=== PATIENT | male | born 1940 | race Caucasian/White ===

== ENCOUNTER 2016-07-27 12:03 | Emergency (ER) | payer MEDICARE, OTHER ==
[2016-07-27] MEDS ORDERED: IPRATROPIUM/ALBUTEROL 3 ML NEB INH STA (13:03)
[2016-07-27] MEDS ORDERED: IPRATROPIUM/ALBUTEROL 3 ML NEB INH ONE (13:10)
[2016-07-27] MEDS ORDERED: ALBUTEROL NEB 2.5 MG/3 ML INH STA (14:25)
[2016-07-27] MEDS ORDERED: predniSONE 20 MG TABLET PO STA (14:25)
[2016-07-27] MEDS ORDERED: predniSONE 20 MG TABLET ONE (14:27)
[2016-07-27] MEDS ORDERED: ALBUTEROL NEB 2.5 MG/3 ML INH ONE (14:38)
== END 2016-07-27 15:30 | disposition home or self-care (01) ==
DX: J44.1 Chronic obstructive pulmonary disease with (acute) exacerbation (principal); R00.1 Bradycardia, unspecified; D64.9 Anemia, unspecified; I10 Essential (primary) hypertension; I25.2 Old myocardial infarction; Z95.5 Presence of coronary angioplasty implant and graft; Z79.82 Long term (current) use of aspirin
CPT/HCPCS: 36415; 71020; 80053; 83690; 83880; 84484; 85025; 85610; 85730; 87275; 87276; 93005; 93010; 94640; 99284; J7512; J7613; J7620

== ENCOUNTER 2016-08-20 20:03 | Outpatient (CLI) | payer MEDICARE, OTHER | END 2016-08-20 20:04 | disposition home or self-care (01) | DX: I42.9 Cardiomyopathy, unspecified (principal) ==

== ENCOUNTER 2016-10-01 21:06 | Outpatient (CLI) | payer MEDICARE, OTHER | END 2016-10-01 21:07 | disposition home or self-care (01) | DX: I42.9 Cardiomyopathy, unspecified (principal); I10 Essential (primary) hypertension; I25.10 Atherosclerotic heart disease of native coronary artery without angina pectoris; E87.1 Hypo-osmolality and hyponatremia; E87.6 Hypokalemia ==

== ENCOUNTER 2016-10-16 12:00 | Outpatient (CLI) | payer MEDICARE, OTHER | END 2016-10-16 12:01 | disposition home or self-care (01) | DX: E87.1 Hypo-osmolality and hyponatremia (principal); I42.9 Cardiomyopathy, unspecified; I25.10 Atherosclerotic heart disease of native coronary artery without angina pectoris; I10 Essential (primary) hypertension; E87.6 Hypokalemia ==

== ENCOUNTER 2016-12-23 08:00 | Outpatient (CLI) | payer MEDICARE, OTHER ==
[2016-12-23 19:15] LABS: ALBUMIN/GLOBULIN RATIO 1.6 (1.0-2.2); BILIRUBIN,TOTAL 0.7 mg/dL (0.2-1.0); CALCIUM 9.2 mg/dL (8.5-10.3); CREATININE 1.1 mg/dL (0.6-1.2); POTASSIUM 4.4 mmol/L (3.5-5.0); TOTAL PROTEIN 6.4 g/dL (6.7-8.2)
== END 2016-12-23 08:01 | disposition home or self-care (01) ==
LOC: LAB.WCP 08:00
PROVIDERS: ATTEND Family Medicine
DX: J44.9 Chronic obstructive pulmonary disease, unspecified (principal); I42.9 Cardiomyopathy, unspecified; I25.10 Atherosclerotic heart disease of native coronary artery without angina pectoris
CPT/HCPCS: 36415; 80053

== ENCOUNTER 2017-06-06 13:23 | Outpatient (CLI) | payer MEDICARE, OTHER ==
[2017-06-06 19:09] LABS: ALBUMIN/GLOBULIN RATIO 1.2 (1.0-2.2); BILIRUBIN,TOTAL 1.2 mg/dL (0.2-1.0); CALCIUM 9.4 mg/dL (8.5-10.3); CREATININE 1.3 mg/dL (0.6-1.2); TOTAL PROTEIN 7.5 g/dL (6.7-8.2)
== END 2017-06-06 13:24 | disposition home or self-care (01) ==
LOC: LAB.WCP 13:23
PROVIDERS: ATTEND Family Medicine
DX: E87.5 Hyperkalemia (principal); I10 Essential (primary) hypertension
CPT/HCPCS: 36415; 80053

== ENCOUNTER 2018-06-08 13:20 | Outpatient (CLI) | payer MEDICARE, OTHER ==
[2018-06-08 19:20] LABS: BASOPHILS # (AUTO) 0.1 10^3/uL (0.0-0.1); BASOPHILS % (AUTO) 1.1 %; EOSINOPHILS # (AUTO) 0.3 10^3/uL (0.0-0.7); EOSINOPHILS % (AUTO) 4.1 %; HGB - HEMOGLOBIN 13.5 g/dL (14.0-18.0); LYMPHOCYTES # (AUTO) 1.2 10^3/uL (1.5-3.5); LYMPHOCYTES % (AUTO) 16.4 %; MEAN CORPUSCULAR HEMOGLOBIN 30.4 pg (27.0-31.0); MEAN CORPUSCULAR HGB CONC 32.5 g/dL (32.0-36.0); MEAN CORPUSCULAR VOLUME 93.6 fL (80.0-94.0); MEAN PLATELET VOLUME 12.6 fL (7.4-11.4); MONOCYTES # (AUTO) 0.8 10^3/uL (0.0-1.0); MONOCYTES % (AUTO) 10.6 %; NEUTROPHILS % (AUTO) 67.8 %; PLT - PLATELET COUNT 121 10^3/uL (130-450); RED BLOOD COUNT 4.45 10^6/uL (4.70-6.10); RED CELL DISTRIBUTION WIDTH 14.4 % (12.0-15.0); WHITE BLOOD COUNT 7.3 x10^3/uL (4.8-10.8)
[2018-06-08 19:36] LABS: ALBUMIN 3.9 g/dL (3.2-5.5); ALBUMIN/GLOBULIN RATIO 1.4 (1.0-2.2); ALKALINE PHOSPHATASE 66 IU/L (42-121); ALT ALANINE AMINOTRANSFERASE 16 IU/L (10-60); AST ASPARTATE AMINOTRANSFERASE 21 IU/L (10-42); BUN - BLOOD UREA NITROGEN 26 mg/dL (6-20); CARBON DIOXIDE - CO2 30 mmol/L (21-32); CHLORIDE 100 mmol/L (101-111); CHOL/HDL RATIO 2.8 (<5.0); CHOLESTEROL 111 mg/dL; CREATININE 1.2 mg/dL (0.6-1.2); GFR - MDRD 59 (>89); GLUCOSE 111 mg/dL (70-100); HDL CHOLESTEROL 40 mg/dL; LDL CHOLESTEROL,CALCULATED 50 mg/dL; LDL/HDL RATIO 1.3 (<3.6); SODIUM 134 mmol/L (135-145); TOTAL PROTEIN 6.6 g/dL (6.7-8.2); VLDL CHOLESTEROL 21 mg/dL
[2018-06-08 19:37] LABS: PLATELET ESTIMATE, MANUAL DECREASED (<130,000) (NORMAL); PLATELET MORPHOLOGY NORMAL APPEARANCE (NORMAL); RBC MORPHOLOGY (MULTIPLE) NORMAL APPEARANCE (NORMAL)
== END 2018-06-08 23:59 | disposition home or self-care (01) ==
LOC: LAB.WCP 13:20
PROVIDERS: ATTEND Family Medicine
DX: I42.9 Cardiomyopathy, unspecified (principal); I10 Essential (primary) hypertension; I25.10 Atherosclerotic heart disease of native coronary artery without angina pectoris; E87.1 Hypo-osmolality and hyponatremia; E87.6 Hypokalemia
CPT/HCPCS: 36415; 80053; 80061; 83721; 84443; 85025

== ENCOUNTER 2018-08-27 13:26 | Outpatient (CLI) | payer MEDICARE, OTHER ==
[2018-08-27 19:06] LABS: ALBUMIN 4.4 g/dL (3.2-5.5); ALBUMIN/GLOBULIN RATIO 1.5 (1.0-2.2); BILIRUBIN,TOTAL 0.9 mg/dL (0.2-1.0); CALCIUM 9.5 mg/dL (8.5-10.3); CREATININE 1.5 mg/dL (0.6-1.2); TOTAL PROTEIN 7.4 g/dL (6.7-8.2)
== END 2018-08-27 13:27 | disposition home or self-care (01) ==
LOC: LAB.WCP 13:26
PROVIDERS: ATTEND Family Medicine
DX: J44.9 Chronic obstructive pulmonary disease, unspecified (principal); I10 Essential (primary) hypertension; I42.9 Cardiomyopathy, unspecified
CPT/HCPCS: 36415; 80053

== ENCOUNTER 2018-09-18 09:24 | Outpatient (CLI) | payer MEDICARE, OTHER ==
--- NOTE | 2018-09-18 11:32 | XRAY Report ---
Reason: COPD, ACUTE EXACERBATION Procedure Date: 09/18/2018 Accession Number: [id number] / [id number] Procedure: WCP - Chest 2 View X-Ray CPT Code: 05715 FULL RESULT: EXAM: CHEST RADIOGRAPHY EXAM DATE: 09/18/2018 09:38 AM. CLINICAL HISTORY: COPD, acute exacerbation. COMPARISON: CHEST 2 VIEW PA/LAT 02/16/2018 8:31 AM. TECHNIQUE: 2 views. FINDINGS: Lungs/Pleura: No focal opacities evident. No pleural effusion. No pneumothorax. High normal volumes with flattening of diaphragms, similar to before. Mediastinum: Heart and mediastinal contours are unremarkable. Other: None. IMPRESSION: Stable examination with appearance compatible with obstructive lung disease. RADIA
== END 2018-09-18 09:25 | disposition home or self-care (01) ==
LOC: DI.WCP 09:24
PROVIDERS: ATTEND Family Medicine
DX: J44.1 Chronic obstructive pulmonary disease with (acute) exacerbation (principal)
CPT/HCPCS: 71046

== ENCOUNTER 2018-09-24 11:48 | Emergency (ER) | payer MEDICARE, OTHER ==
[2018-09-24] MEDS ORDERED: IOPAMIDOL-300 100 ML VIAL IVP ONE ×2 (11:49→20:27)
[2018-09-24 12:42] LABS: BASOPHILS # (AUTO) 0.1 10^3/uL (0.0-0.1); BASOPHILS % (AUTO) 0.4 %; EOSINOPHILS # (AUTO) 0.2 10^3/uL (0.0-0.7); EOSINOPHILS % (AUTO) 0.8 %; HGB - HEMOGLOBIN 13.4 g/dL (14.0-18.0); LYMPHOCYTES # (AUTO) 1.7 10^3/uL (1.5-3.5); LYMPHOCYTES % (AUTO) 8.8 %; MEAN CORPUSCULAR HEMOGLOBIN 30.9 pg (27.0-31.0); MEAN CORPUSCULAR HGB CONC 33.7 g/dL (32.0-36.0); MEAN CORPUSCULAR VOLUME 91.6 fL (80.0-94.0); MEAN PLATELET VOLUME 10.7 fL (7.4-11.4); MONOCYTES # (AUTO) 1.5 10^3/uL (0.0-1.0); MONOCYTES % (AUTO) 7.4 %; NEUTROPHILS # (AUTO) 16.2 10^3/uL (1.5-6.6); NEUTROPHILS % (AUTO) 82.6 %; PLT - PLATELET COUNT 229 10^3/uL (130-450); RED BLOOD COUNT 4.34 10^6/uL (4.70-6.10); RED CELL DISTRIBUTION WIDTH 14.3 % (12.0-15.0); WHITE BLOOD COUNT 19.6 x10^3/uL (4.8-10.8)
[2018-09-24 12:57] LABS: INR 1.4 (0.8-1.2); PT - PROTHROMBIN TIME 15.3 secs (9.9-12.6)
[2018-09-24] MEDS ORDERED: IPRATROPIUM/ALBUTEROL 3 ML NEB INH STA ×2 (12:57→19:47)
--- NOTE | 2018-09-24 12:59 | XRAY Report ---
Reason: dyspnea Procedure Date: 09/24/2018 Accession Number: [id number] / [id number] Procedure: XR - Chest 1 View X-Ray CPT Code: 14157 FULL RESULT: EXAM: CHEST RADIOGRAPHY EXAM DATE: 09/24/2018 12:50 PM. CLINICAL HISTORY: Dyspnea. COMPARISON: None. TECHNIQUE: 1 view. FINDINGS: Lungs/Pleura: No focal opacities evident. No pleural effusion. No pneumothorax. Mediastinum: Within exam limitations, the cardiomediastinal contour is normal. Other: None. IMPRESSION: No focal consolidation. RADIA
[2018-09-24 13:02] LABS: TROPONIN I < 0.04 ng/mL (<0.49)
[2018-09-24 13:04] LABS: CREATINE KINASE MB 6.2 ng/mL (0.6-6.3)
--- NOTE | 2018-09-24 13:04 | ED Physician Documentation ---
PD HPI DYSPNEA - Stated complaint Stated Complaint: SENT BY SALVATORE FOY - Chief complaint Chief Complaint: Resp - History obtained from History obtained from: Patient, Family - History of Present Illness Timing - onset: Other (This is a 78-year-old gentleman with history of viral my myocarditis/cardiomyopathy in 2013. He says that his most recent ejection fraction was 45%, however the note from his doctor's office visit was 35%. Regardless he got sick about a week ago with cough cold and runny nose. He was seen in the office and it was felt to be a COPD exacerbation. He was put on steroids, but went back for a recheck today and his physician thought he might be in congestive heart failure and sent him to the emergency department for further evaluation. He says he is worse when he is supine, but denies pedal edema. He has no calf pain. No fevers. He finished the steroids about 2 days ago. There is no chest pain.) Review of Systems Ten Systems: 10 systems reviewed and negative Constitutional: reports: Fatigue. denies: Fever, Chills Nose: reports: Rhinorrhea / runny nose Throat: denies: Sore throat Cardiac: denies: Chest pain / pressure, Palpitations, Pedal edema, Calf pain Respiratory: reports: Dyspnea, Cough, Wheezing. denies: Hemoptysis PD PAST MEDICAL HISTORY - Past Medical History Cardiovascular: Hypertension, High cholesterol, [place] Respiratory: COPD GI: GERD, Hiatal hernia - Past Surgical History Past Surgical History: Yes Cardiovascular: Coronary stent HEENT: Cataracts - Present Medications Home Medications: Ambulatory Orders Medication Instructions Recorded Confirmed Albuterol Sulf [Ventolin Hfa 1 - 2 puffs INH Q4HR PRN 07/27/16 07/27/16 Inhaler] Aspirin [Aspirin EC] 81 mg PO DAILY 07/27/16 07/27/16 Atorvastatin Calcium 80 mg PO DAILY 07/27/16 07/27/16 Carvedilol 12.5 mg PO DAILY 07/27/16 07/27/16 Carvedilol 25 mg PO QPM 07/27/16 07/27/16 Fluticasone Propionate [Flovent 12 gm IH BID 07/27/16 07/27/16 Hfa] Losartan [Cozaar] 50 mg PO DAILY 07/27/16 07/27/16 Pantoprazole [Protonix] 40 mg PO DAILY 07/27/16 07/27/16 Furosemide [Lasix] 20 mg PO DAILY 09/24/18 09/24/18 - Allergies Allergies/Adverse Reactions: Allergies Allergy/AdvReac Type Severity Reaction Status Date / Time chlortrimeton AdvReac Mild Hives Uncoded 09/24/18 12:05 - Social History Does the pt smoke?: No Smoking Status: Never smoker Does the pt drink ETOH?: No Does the pt have substance abuse?: No - POLST Patient has POLST: No PD ED PE NORMAL - Vitals Vital signs reviewed: Yes (Hypoxic and tachypneic) - General General: Alert and oriented X 3, Other (Pursed lip breathing but speaking in full sentences) - HEENT HEENT: PERRL, EOMI - Neck Neck: Supple, no meningeal sign, No bony TTP, No JVD - Cardiac Cardiac: RRR, No murmur - Respiratory Respiratory: Other (Very diminished throughout, no rales) - Abdomen Abdomen: Soft, Non tender - Back Back: No CVA TTP, No spinal TTP - Derm Derm: Normal color, Warm and dry - Extremities Extremities: No edema, No calf tenderness / cord - Neuro Neuro: Alert and oriented X 3, Normal speech Results - Vitals Vitals: Vital Signs - 24 hr 09/24/18 09/24/18 09/24/18 12:03 12:26 13:11 Temperature 36.5 C 36.4 C L Heart Rate 72 69 71 Respiratory 26 H 22 20 Rate Blood Pressure 154/92 H 169/102 H 127/98 H O2 Saturation 87 L 94 92 09/24/18 09/24/18 09/24/18 13:32 13:36 14:39 Temperature Heart Rate 94 100 76 Respiratory 27 H 23 34 H Rate Blood Pressure 127/98 H 173/79 H O2 Saturation 90 L 09/24/18 09/24/18 09/24/18 15:43 16:13 16:27 Temperature 36.3 C L Heart Rate 74 78 73 Respiratory 18 22 20 Rate Blood Pressure 188/94 H O2 Saturation 92 09/24/18 09/24/18 09/24/18 17:00 17:15 17:30 Temperature Heart Rate 78 72 73 Respiratory 20 22 22 Rate Blood Pressure 137/88 H 156/80 H 144/87 H O2 Saturation 93 90 L 90 L 09/24/18 09/24/18 09/24/18 17:45 18:00 18:15 Temperature Heart Rate 73 72 72 Respiratory 20 22 20 Rate Blood Pressure 165/83 H 155/85 H 161/80 H O2 Saturation 90 L 90 L 90 L 09/24/18 18:30 Temperature Heart Rate 78 Respiratory 22 Rate Blood Pressure 167/85 H O2 Saturation 91 L Oxygen O2 Source Oxymask Oxygen Flow Rate 3 - EKG (time done) 1225 Rate: Rate (enter#) (69) Rhythm: NSR [place]: Normal Intervals: Normal IN QRS: Normal Ischemia: Normal ST segments Computer interpretation: Agree with computer - Labs Labs: Laboratory Tests 09/24/18 09/24/18 09/24/18 12:15 12:15 12:15 WBC 19.6 H RBC 4.34 L Hgb 13.4 L Hct 39.8 L MCV 91.6 MCH 30.9 MCHC 33.7 RDW 14.3 Plt Count 229 MPV 10.7 Neut # (Auto) 16.2 H Lymph # (Auto) 1.7 Harney # (Auto) 1.5 H Eos # (Auto) 0.2 Baso # (Auto) 0.1 Absolute Nucleated RBC 0.00 Nucleated RBC % 0.0 PT 15.3 H INR 1.4 H VBG pH VBG pCO2 VBG pO2 VBG HCO3 VBG Total CO2 VBG O2 Saturation VBG Base Excess Sodium 138 Potassium 3.7 Chloride 101 Carbon Dioxide 21 Anion Gap 16.0 H BUN 36 H Creatinine 1.3 H Estimated GFR (MDRD) 53 L Glucose 96 Calcium 8.0 L Total Bilirubin 0.8 AST 29 ALT 23 Alkaline Phosphatase 67 Total Creatine Kinase 118 CK-MB (CK-2) Troponin I B-Natriuretic Peptide Total Protein 6.9 Albumin 3.9 Globulin 3.0 Albumin/Globulin Ratio 1.3 Lipase 35 Influenza A (Rapid) Influenza B (Rapid) 09/24/18 09/24/18 09/24/18 12:15 13:06 16:22 WBC RBC Hgb Hct MCV MCH MCHC RDW Plt Count MPV Neut # (Auto) Lymph # (Auto) Harney # (Auto) Eos # (Auto) Baso # (Auto) Absolute Nucleated RBC Nucleated RBC % PT INR VBG pH 7.459 H VBG pCO2 34.8 L VBG pO2 54.0 H VBG HCO3 24.1 VBG Total CO2 25.2 VBG O2 Saturation 88.8 H VBG Base Excess 0.8 Sodium Potassium Chloride Carbon Dioxide Anion Gap BUN Creatinine Estimated GFR (MDRD) Glucose Calcium Total Bilirubin AST ALT Alkaline Phosphatase Total Creatine Kinase CK-MB (CK-2) 6.2 Troponin I < 0.04 B-Natriuretic Peptide 270 H Total Protein Albumin Globulin Albumin/Globulin Ratio Lipase Influenza A (Rapid) Influenza B (Rapid) 09/24/18 18:10 WBC RBC Hgb Hct MCV MCH MCHC RDW Plt Count MPV Neut # (Auto) Lymph # (Auto) Harney # (Auto) Eos # (Auto) Baso # (Auto) Absolute Nucleated RBC Nucleated RBC % PT INR VBG pH VBG pCO2 VBG pO2 VBG HCO3 VBG Total CO2 VBG O2 Saturation VBG Base Excess Sodium Potassium Chloride Carbon Dioxide Anion Gap BUN Creatinine Estimated GFR (MDRD) Glucose Calcium Total Bilirubin AST ALT Alkaline Phosphatase Total Creatine Kinase CK-MB (CK-2) Troponin I B-Natriuretic Peptide Total Protein Albumin Globulin Albumin/Globulin Ratio Lipase Influenza A (Rapid) Negative Influenza B (Rapid) Negative - Rads (name of study) 1v chest Radiology: EMP read contemporaneously (Read by the radiologist as normal, the radiologist comments that there are no pleural effusions, I do see a small left pleural effusion.) CTA chest Radiology: EMP read contemporaneously (Mild opacities in the right middle and right lower lobe, small apex nodules. No PE.) PD MEDICAL DECISION MAKING - ED course ED course: This is a 78-year-old gentleman with COPD and a history of heart disease. He was sent here for concern for CHF, however my examination and history is more consistent with COPD exacerbation. He is hypoxic and tachypneic. He was administered IV Solu-Medrol 125 mg, Rocephin and Zithromax IV, and multiple breathing treatments. After a DuoNeb his sats dropped further, there is really no significant evidence of CHF on chest x-ray or BNP which is only middling. He does need to be admitted. Unfortunately this hospital is full as is every hospital in the area I am told including [place], [place], [place], [place], and everything in [place]. We discussed with the patient potentially being transferred over to [place] or [place] which she refused so he will board in the emergency department until a bed is available. I spoke with the hospitalist, Dr. Ge at 2:12 PM, due to his volume he will have to delay the admission until discharge are done. It looks like there is no bed available here for the whole day and at least until tomorrow. A bed did open up in [place] and the patient was agreeable. He did have an increasing oxygen requirement up to 7 L by Oxymizer mask. Accept[facility] by Dr. Nicol [facility] to [facility] at 5:55 PM. She requests a flu swab and this will be done. Cobras were completed. He is stable for transport. - Critical Care Time(min): 45 Time Includes: Direct patient care, Review records, Reassess patient, Document care, Coordinate care, Medical consult, Family consult for tx dec Data interpretation: Labs, Pulse ox Procedures included in critical care time: Peripheral IV Procedures excluded from critical care time: EKG Departure - Departure Disposition: 02 Transfer Acute Care Hosp Clinical Impression: Severe chronic obstructive pulmonary disease Pneumonia Qualifiers: Pneumonia type: due to unspecified organism Laterality: right Lung location: unspecified part of lung Qualified Code(s): J18.9 - Pneumonia, unspecified organism Condition: Serious
[2018-09-24] MEDS ORDERED: AZITHROMYCIN INJ 500 MG in SODIUM CHLORIDE 0.9% 250 ML IV STA (13:05)
[2018-09-24] MEDS ORDERED: methylPREDNISolone SUCCINATE 125 MG/2 ML VIAL IVP STA (13:05)
[2018-09-24] MEDS ORDERED: cefTRIAXone 1 GM in SODIUM CHLORIDE 0.9% MINIBAG 100 ML IV STA (13:05)
[2018-09-24 13:34] LABS: ALBUMIN 3.9 g/dL (3.2-5.5); ALBUMIN/GLOBULIN RATIO 1.3 (1.0-2.2); BILIRUBIN,TOTAL 0.8 mg/dL (0.2-1.0); CREATININE 1.3 mg/dL (0.6-1.2); TOTAL PROTEIN 6.9 g/dL (6.7-8.2)
[2018-09-24] MEDS ORDERED: ALBUTEROL NEB 2.5 MG/3 ML INH STA ×2 (15:33→16:08)
[2018-09-24] MEDS ORDERED: IOPAMIDOL-300 100 ML VIAL ONE (16:18)
[2018-09-24 16:25] LABS: VBG PCO2 34.8 mmHg (41-51); VBG PH 7.459 (7.31-7.41)
[2018-09-24 16:26] LABS: VBG BASE EXCESS 0.8 mmol/L (-2 - +2); VBG TOTAL CO2 25.2 mmol/L (24-29)
--- NOTE | 2018-09-24 17:36 | CT Report ---
Reason: Dyspnea, PE study Procedure Date: 09/24/2018 Accession Number: [id number] / [id number] Procedure: CT - ANGIO CHEST W/WO CPT Code: FULL RESULT: EXAM: CT ANGIOGRAM CHEST EXAM DATE: 09/24/2018 04:38 PM. CLINICAL HISTORY: Dyspnea, PE study. COMPARISON: None. TECHNIQUE: Routine helical imaging was performed through the chest in the pulmonary arterial phase. IV Contrast: ISOVUE 300 80mL. Reconstructions: Coronal 3-D MIP reconstructions.Sagittal and coronal. In accordance with CT protocol optimization, one or more of the following dose reduction techniques were utilized for this exam: automated exposure control, adjustment of mA and/or KV based on patient size, or use of iterative reconstructive technique. FINDINGS: Mediastinum: No evidence for pulmonary emboli. Heart size within normal limits. Coronary artery calcification. No thoracic aortic aneurysm. No mediastinal or hilar lymphadenopathy. Upper abdomen: No acute findings. Mild colonic diverticulosis at the splenic flexure. Lungs: A few small right apex only nodules, the largest measures 4 mm. Mild diffuse nodular hazy opacities are seen in the right middle lobe with minimal base consolidations. Mild diffuse hazy nodular opacities with a few multifocal small opacities seen in the right lower lobe. Bilateral lower lobe bronchial wall thickening with areas of bronchial opacification. Mild lingular and left based consolidations, suspect atelectasis. No pleural effusion or pneumothorax. 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 No acute bone findings are seen. IMPRESSION: 1. Mild hazy and nodular opacities are seen in the right middle lobe and right lower lobe concerning for pneumonia or aspiration. Bilateral lower lobe bronchial wall thickening with areas of bronchial opacification. 2. A few small right apex only nodules, the largest measures 4 mm. If there is low risk for malignancy, then no follow-up is warranted. If there is high risk for malignancy, recommend a 1 year follow-up chest CT. 3. Mild colonic diverticulosis at the splenic flexure. 4. No evidence for pulmonary emboli. 5. See above. RADIA
[2018-09-24 20:14] VITALS: BP 185/79
== END 2018-09-24 20:53 | disposition short-term general hospital (02) ==
LOC: ED 11:48
DX: J44.9 Chronic obstructive pulmonary disease, unspecified (principal); J18.9 Pneumonia, unspecified organism; I25.2 Old myocardial infarction; I10 Essential (primary) hypertension; E78.00 Pure hypercholesterolemia, unspecified; Z95.5 Presence of coronary angioplasty implant and graft
CPT/HCPCS: 36415; 71045; 71275; 80053; 82550; 82553; 82803; 83690; 83880; 84484; 85025; 85610; 87275; 87276; 93005; 94640; 96365; 96367; 96375; 99284; 99291; Q9967; 99285

== ENCOUNTER 2018-09-24 22:23 | Outpatient (CLI) | payer MEDICARE, OTHER | END 2018-09-24 22:24 | disposition short-term general hospital (02) | LOC: EMS 22:23 | PROVIDERS: ATTEND Surgery | DX: J44.1 Chronic obstructive pulmonary disease with (acute) exacerbation (principal) | CPT/HCPCS: A0425; A0426 ==

== ENCOUNTER 2018-10-09 08:00 | Outpatient (CLI) | payer MEDICARE, OTHER ==
[2018-10-09 19:11] LABS: CALCIUM 8.6 mg/dL (8.5-10.3); CREATININE 1.4 mg/dL (0.6-1.2)
== END 2018-10-09 23:59 | disposition home or self-care (01) ==
LOC: LAB.WCP 08:00
PROVIDERS: ATTEND Family Medicine
DX: I42.9 Cardiomyopathy, unspecified (principal)
CPT/HCPCS: 36415; 80048

== ENCOUNTER 2019-01-11 16:58 | Outpatient (CLI) | payer MEDICARE, OTHER ==
[2019-01-11 17:24] LABS: CALCIUM 8.6 mg/dL (8.5-10.3); CREATININE 1.8 mg/dL (0.6-1.2)
== END 2019-01-11 16:59 | disposition home or self-care (01) ==
LOC: LAB 16:58
PROVIDERS: ATTEND Family Medicine
DX: N18.3 Chronic kidney disease, stage 3 (moderate) (principal)
CPT/HCPCS: 36415; 80048

== ENCOUNTER 2019-04-01 15:47 | Outpatient (CLI) | payer MEDICARE, OTHER ==
[2019-04-01 19:02] LABS: BASOPHILS # (AUTO) 0.1 10^3/uL (0.0-0.1); BASOPHILS % (AUTO) 1.2 %; EOSINOPHILS # (AUTO) 0.3 10^3/uL (0.0-0.7); EOSINOPHILS % (AUTO) 4.3 %; HGB - HEMOGLOBIN 11.5 g/dL (14.0-18.0); LYMPHOCYTES # (AUTO) 1.1 10^3/uL (1.5-3.5); LYMPHOCYTES % (AUTO) 16.2 %; MEAN CORPUSCULAR HEMOGLOBIN 30.3 pg (27.0-31.0); MEAN CORPUSCULAR HGB CONC 32.2 g/dL (32.0-36.0); MEAN CORPUSCULAR VOLUME 94.2 fL (80.0-94.0); MONOCYTES # (AUTO) 0.8 10^3/uL (0.0-1.0); MONOCYTES % (AUTO) 11.7 %; NEUTROPHILS # (AUTO) 4.5 10^3/uL (1.5-6.6); NEUTROPHILS % (AUTO) 66.3 %; PLT - PLATELET COUNT 171 10^3/uL (130-450); RED BLOOD COUNT 3.79 10^6/uL (4.70-6.10); RED CELL DISTRIBUTION WIDTH 12.6 % (12.0-15.0); WHITE BLOOD COUNT 6.8 x10^3/uL (4.8-10.8)
[2019-04-01 19:14] LABS: ALBUMIN 4.3 g/dL (3.2-5.5); ALBUMIN/GLOBULIN RATIO 1.7 (1.0-2.2); BILIRUBIN,TOTAL 0.6 mg/dL (0.2-1.0); CALCIUM 9.6 mg/dL (8.5-10.3); CREATININE 1.6 mg/dL (0.6-1.2); TOTAL PROTEIN 6.9 g/dL (6.7-8.2)
== END 2019-04-01 23:59 | disposition home or self-care (01) ==
LOC: LAB.WCP 15:47
PROVIDERS: ATTEND Family Medicine
DX: N17.9 Acute kidney failure, unspecified (principal); N18.3 Chronic kidney disease, stage 3 (moderate); I42.9 Cardiomyopathy, unspecified; J18.9 Pneumonia, unspecified organism; E78.5 Hyperlipidemia, unspecified
CPT/HCPCS: 36415; 80053; 84443; 85025

== ENCOUNTER 2019-05-19 08:00 | Outpatient (CLI) | payer MEDICARE, OTHER ==
[2019-05-19 19:11] LABS: CALCIUM 8.4 mg/dL (8.5-10.3); CREATININE 1.4 mg/dL (0.6-1.2)
== END 2019-05-19 23:59 | disposition home or self-care (01) ==
LOC: LAB.WCP 08:00
PROVIDERS: ATTEND Family Medicine
DX: N17.9 Acute kidney failure, unspecified (principal)
CPT/HCPCS: 36415; 80048

== ENCOUNTER 2019-06-11 09:00 | Outpatient (CLI) | payer MEDICARE, OTHER ==
[2019-06-14 22:11] LABS: ALBUMIN 3.7 g/dL (3.8-4.8); ALPHA 1 GLOBULIN 0.3 g/dL (0.2-0.3); ALPHA 2 GLOBULIN 0.9 g/dL (0.5-0.9); BETA 1 GLOBULIN 0.4 g/dL (0.4-0.6); BETA 2 GLOBULIN 0.2 g/dL (0.2-0.5); GAMMA GLOBULIN 0.6 g/dL (0.8-1.7)
== END 2019-06-11 23:59 | disposition home or self-care (01) ==
LOC: LAB.WCP 09:00
PROVIDERS: ATTEND Internal Medicine Cardiovascular Disease
DX: I42.9 Cardiomyopathy, unspecified (principal)
CPT/HCPCS: 36415; 83883; 84155; 84165

== ENCOUNTER 2019-09-03 14:59 | Outpatient (CLI) | payer MEDICARE, OTHER ==
[2019-09-03 18:50] LABS: CALCIUM 9.2 mg/dL (8.5-10.3); CREATININE 1.3 mg/dL (0.6-1.2); MAGNESIUM 1.4 mg/dL (1.7-2.8)
== END 2019-09-03 23:59 | disposition home or self-care (01) ==
LOC: LAB.WCP 14:59
PROVIDERS: ATTEND Family Medicine
DX: N17.9 Acute kidney failure, unspecified (principal); N18.3 Chronic kidney disease, stage 3 (moderate)
CPT/HCPCS: 36415; 80048; 83735

== ENCOUNTER 2019-10-04 14:18 | Outpatient (CLI) | payer MEDICARE, OTHER ==
[2019-10-04 18:44] LABS: CALCIUM 9.9 mg/dL (8.5-10.3); CREATININE 1.4 mg/dL (0.6-1.2); MAGNESIUM 1.6 mg/dL (1.7-2.8)
== END 2019-10-04 23:59 | disposition home or self-care (01) ==
LOC: LAB.WCP 14:18
PROVIDERS: ATTEND Family Medicine
DX: N18.3 Chronic kidney disease, stage 3 (moderate) (principal)
CPT/HCPCS: 36415; 80048; 83735

== ENCOUNTER 2019-11-02 08:00 | Outpatient (CLI) | payer MEDICARE, OTHER ==
[2019-11-02 17:52] LABS: CALCIUM 10.1 mg/dL (8.5-10.3); CREATININE 1.6 mg/dL (0.6-1.2); MAGNESIUM 1.6 mg/dL (1.7-2.8)
== END 2019-11-02 23:59 | disposition home or self-care (01) ==
LOC: LAB.WCP 08:00
PROVIDERS: ATTEND Family Medicine
DX: N18.3 Chronic kidney disease, stage 3 (moderate) (principal)
CPT/HCPCS: 36415; 80048; 83735

== ENCOUNTER 2019-11-04 07:00 | Outpatient (CLI) | payer MEDICARE, OTHER ==
[2019-11-04 12:16] LABS: CALCIUM 8.9 mg/dL (8.5-10.3); CREATININE 1.7 mg/dL (0.6-1.2)
== END 2019-11-04 23:59 | disposition home or self-care (01) ==
LOC: LAB.WCP 07:00
PROVIDERS: ATTEND Family Medicine
DX: E87.5 Hyperkalemia (principal)
CPT/HCPCS: 36415; 80048

== ENCOUNTER 2019-11-05 08:00 | Outpatient (CLI) | payer MEDICARE, OTHER | END 2019-11-05 23:59 | disposition home or self-care (01) | LOC: LAB.WCP 08:00 | PROVIDERS: ATTEND Family Medicine | DX: E87.5 Hyperkalemia (principal) ==

== ENCOUNTER 2019-12-01 14:01 | Outpatient (CLI) | payer MEDICARE, OTHER ==
[2019-12-01 18:16] LABS: CALCIUM 9.3 mg/dL (8.5-10.3); CREATININE 1.4 mg/dL (0.6-1.2)
== END 2019-12-01 23:59 | disposition home or self-care (01) ==
LOC: LAB.WCP 14:01
PROVIDERS: ATTEND Family Medicine
DX: I25.10 Atherosclerotic heart disease of native coronary artery without angina pectoris (principal)
CPT/HCPCS: 36415; 80048

== ENCOUNTER 2019-12-19 03:43 | Emergency (ER) | payer MEDICARE, OTHER ==
--- NOTE | 2019-12-19 04:29 | ED Physician Documentation ---
PD HPI Fall - Stated complaint Stated Complaint: FALL/BODY PX - Chief complaint Chief Complaint: Trauma Ext - History obtained from History obtained from: Patient - History of Present Illness Mechanism of injury: Other (fell off chair) Fall distance: Less than 5ft Where injury occurred: Home Timing - onset: How many hours ago (approximately 1 hour [employer]) Injury(ies) location: Back Pain level now: 8 Quality of pain: Pain Associated symptoms: No: LOC, AMS, Neck pain, Weakness, Paresthesias, Dyspnea, Nausea / vomiting Symptoms improve with: Rest (sometimes better with rest, other times he feels he has to stand up and walk around), Position Worsens with: Movement Contributing factors: No: Anticoagulated, Intoxicated Similar symptoms before: Has not had sx before Recently seen: Not recently seen - Additional information Additional information: c/o sudden onset low back pain, across lower back, when he fell approximately 1 hour [employer]. He went to stand on a chair so as to clean the top of his refrigerator. He had one leg up on the chair, but when he went to put weight on the second leg, his foot was too far back off the chair (heel was off the end), causing him to fall backwards. He fell onto his buttocks and back, also struck his head (although this was somewhat cushioned because it hit a cardboard box). He denies headache, denies LOC. He initially had pain c/o in multiple areas when triaged, but by the time of my evaluation, he only c/o LBP Review of Systems Cardiac: reports: Reviewed and negative Respiratory: reports: Reviewed and negative GI: reports: Reviewed and negative : denies: Unable to Void, Incontinent Musculoskeletal: reports: Back pain. denies: Neck pain, Extremity pain, Joint pain, Extremity swelling, Joint swelling, Pain with weight bearing Neurologic: denies: Generalized weakness, Focal weakness, Numbness, Headache, Head injury, LOC PD PAST MEDICAL HISTORY - Past Medical History Cardiovascular: Hypertension, High cholesterol, [place] Respiratory: COPD GI: GERD, Hiatal hernia - Past Surgical History Past Surgical History: Yes Cardiovascular: Coronary stent HEENT: Cataracts - Present Medications Home Medications: Ambulatory Orders Medication Instructions Recorded Confirmed Albuterol Sulf [Ventolin Hfa 1 - 2 puffs INH Q4HR PRN 07/27/16 12/19/19 Inhaler] Aspirin [Aspirin EC] 81 mg PO DAILY 07/27/16 12/19/19 Atorvastatin Calcium 80 mg PO DAILY 07/27/16 12/19/19 Carvedilol 12.5 mg PO DAILY 07/27/16 12/19/19 Carvedilol 25 mg PO QPM 07/27/16 12/19/19 Fluticasone Propionate [Flovent 12 gm IH BID 07/27/16 12/19/19 Hfa] Losartan [Cozaar] 50 mg PO DAILY 07/27/16 12/19/19 Pantoprazole [Protonix] 40 mg PO DAILY 07/27/16 12/19/19 Furosemide [Lasix] 20 mg PO DAILY 09/24/18 12/19/19 Cyclobenzaprine [Flexeril] 10 mg PO TID PRN #20 tablet 12/19/19 Hydrocodone/Acetaminophen 1 - 2 each PO Q6H PRN #14 tablet 12/19/19 [Hydrocodon-Acetaminophen 5-325] - Allergies Allergies/Adverse Reactions: Allergies Allergy/AdvReac Type Severity Reaction Status Date / Time chlorpheniramine AdvReac Mild Running Verified 12/19/19 04:07 nose - Social History Does the pt smoke?: No Smoking Status: Never smoker Does the pt drink ETOH?: No Does the pt have substance abuse?: No - POLST Patient has POLST: No PD ED PE NORMAL - Vitals Vital signs reviewed: Yes - General General: Alert and oriented X 3, Well developed/nourished, Other (appears to be in waxing and waning painful distress during H+P) - HEENT HEENT: Atraumatic - Neck Neck: Supple, no meningeal sign, No bony TTP - Cardiac Cardiac: RRR, No murmur - Respiratory Respiratory: No respiratory distress, Clear bilaterally - Abdomen Abdomen: Soft, Non tender - Back Back: No CVA TTP, Other (mild TTP midline upper lumbar and lower thoracic spine as well a bilateral paralumbar and parathoracic areas at these same levels. No obvious deformity, no bony step off, no crepitus, no bruising) - Derm Derm: Normal color, Warm and dry, No rash - Extremities Extremities: Normal ROM s pain - Neuro Neuro: Alert and oriented X 3, admissions representative 2-12 intact, No motor deficit, No sensory deficit, Other (5/5 dorsi/plantar flexion bilaterally. 2+/4 bilateral patellar DTR. LTS intact BLE) Results - Vitals Vitals: Vital Signs - 24 hr 12/19/19 12/19/19 04:04 06:49 Temperature 36.6 C Heart Rate 69 78 Respiratory 20 16 Rate Blood Pressure 201/92 H 184/74 H O2 Saturation 97 98 Oxygen O2 Source Oxymask - Rads (name of study) CT lumbar spine Radiology: Prelim report reviewed, See rad report PD MEDICAL DECISION MAKING - ED course Complexity details: reviewed results, re-evaluated patient, considered differential, d/w patient ED course: declines analgesics in ED, accepts rx and to-go opiate analgesics at time of discharge. Departure - Departure Disposition: 01 Home, Self Care Clinical Impression: Fall, Low back sprain Condition: Good Instructions: ED Sprain Strain Lumbar Follow-Up: Charlie Palma MD [Primary Care Provider] - (3-5 days) Prescriptions: Cyclobenzaprine [Flexeril] 10 mg PO TID PRN #20 tablet PRN Reason: Spasms Hydrocodone/Acetaminophen [Hydrocodon-Acetaminophen 5-325] 1 - 2 each PO Q6H PRN #14 tablet PRN Reason: pain Discharge Date/Time: 12/19/19 06:49
--- NOTE | 2019-12-19 05:42 | CT Report ---
Reason: fall, back pain Procedure Date: 12/19/2019 Accession Number: [id number] / [id number] Procedure: CT - LUMBAR SPINE WO CPT Code: Final Report FULL RESULT: EXAM: CT LUMBAR SPINE WITHOUT CONTRAST EXAM DATE: 12/19/2019 05:21 AM. CLINICAL HISTORY: Fall, back pain. COMPARISONS: None. TECHNIQUE: Thin-section axial images were acquired of the lumbar spine from T12 to S1 without contrast. Post-processing: Coronal and sagittal reformats. Other: None. In accordance with CT protocol optimization, one or more of the following dose reduction techniques were utilized for this exam: automated exposure control, adjustment of mA and/or KV based on patient size, or use of iterative reconstructive technique. FINDINGS: Alignment: No scoliosis or spondylolisthesis. Bones: No fractures or bone lesions. Interspace Levels/Facets: No acute malalignment. Mild disk level degenerative changes with anterior osteophytosis. No significant disk herniation identified at any level. Moderate L4-L5 facet DJD causes mild central canal and mild bilateral neural foraminal stenosis at the level. Other: Colonic diverticulosis and cholelithiasis. Bridging osteophytes across the sacroiliac joints. No paravertebral hematoma is seen. IMPRESSION: 1. No lumbar fracture or malalignment. 2. Moderate facet degenerative changes at L4-L5. 3. Colonic diverticulosis. 4. Cholelithiasis. RADIA
[2019-12-19] MEDS ORDERED: HYDROcod/ACET 5/325 Prepack 4 PO STA (06:28)
[2019-12-19 06:50] VITALS: BP 184/74
== END 2019-12-19 06:49 | disposition home or self-care (01) ==
LOC: ED 03:43
DX: M54.5 Low back pain (principal); I10 Essential (primary) hypertension
CPT/HCPCS: 72131; 99284

== ENCOUNTER 2020-01-10 14:43 | Outpatient (CLI) | payer MEDICARE, OTHER ==
[2020-01-10 18:09] LABS: BASOPHILS # (AUTO) 0.1 10^3/uL (0.0-0.1); BASOPHILS % (AUTO) 1.2 %; EOSINOPHILS # (AUTO) 0.4 10^3/uL (0.0-0.7); EOSINOPHILS % (AUTO) 5.2 %; HGB - HEMOGLOBIN 12.1 g/dL (14.0-18.0); LYMPHOCYTES # (AUTO) 1.1 10^3/uL (1.5-3.5); LYMPHOCYTES % (AUTO) 15.7 %; MEAN CORPUSCULAR HEMOGLOBIN 30.7 pg (27.0-31.0); MEAN CORPUSCULAR HGB CONC 32.4 g/dL (32.0-36.0); MEAN CORPUSCULAR VOLUME 94.9 fL (80.0-94.0); MEAN PLATELET VOLUME 13.4 fL (7.4-11.4); MONOCYTES # (AUTO) 0.8 10^3/uL (0.0-1.0); MONOCYTES % (AUTO) 11.9 %; NEUTROPHILS # (AUTO) 4.5 10^3/uL (1.5-6.6); NEUTROPHILS % (AUTO) 65.7 %; PLT - PLATELET COUNT 169 10^3/uL (130-450); RED BLOOD COUNT 3.94 10^6/uL (4.70-6.10); RED CELL DISTRIBUTION WIDTH 12.5 % (12.0-15.0); WHITE BLOOD COUNT 6.9 x10^3/uL (4.8-10.8)
[2020-01-10 19:09] LABS: ALBUMIN 3.9 g/dL (3.2-5.5); ALBUMIN/GLOBULIN RATIO 1.4 (1.0-2.2); BILIRUBIN,TOTAL 0.6 mg/dL (0.2-1.0); CALCIUM 9.1 mg/dL (8.5-10.3); CREATININE 1.3 mg/dL (0.6-1.2); MAGNESIUM 1.4 mg/dL (1.7-2.8); TOTAL PROTEIN 6.7 g/dL (6.7-8.2)
== END 2020-01-10 23:59 | disposition home or self-care (01) ==
LOC: LAB.WCP 14:43
PROVIDERS: ATTEND Family Medicine
DX: I42.9 Cardiomyopathy, unspecified (principal); N18.3 Chronic kidney disease, stage 3 (moderate); M54.9 Dorsalgia, unspecified; R06.09 Other forms of dyspnea
CPT/HCPCS: 36415; 80053; 83735; 83880; 85025

== ENCOUNTER 2020-02-07 12:45 | Outpatient (CLI) | payer MEDICARE, OTHER ==
[2020-02-07 18:38] LABS: ALBUMIN 4.1 g/dL (3.2-5.5); ALBUMIN/GLOBULIN RATIO 1.3 (1.0-2.2); BILIRUBIN,TOTAL 0.9 mg/dL (0.2-1.0); CALCIUM 9.4 mg/dL (8.5-10.3); CREATININE 1.5 mg/dL (0.6-1.2); TOTAL PROTEIN 7.2 g/dL (6.7-8.2)
== END 2020-02-07 23:59 | disposition home or self-care (01) ==
LOC: LAB.WCP 12:45
PROVIDERS: ATTEND Family Medicine
DX: N18.3 Chronic kidney disease, stage 3 (moderate) (principal)
CPT/HCPCS: 36415; 80053; 83735

== ENCOUNTER 2020-02-14 00:48 | Emergency (ER) | payer MEDICARE, OTHER ==
[2020-02-14] MEDS ORDERED: OXYMETAZOLINE HCL 100 SPRAYS BOTTLE NAS STA (02:29)
--- NOTE | 2020-02-14 02:29 | ED Physician Documentation ---
PD HPI HEADACHE - Stated complaint Stated Complaint: NOSEBLEED - Chief complaint Chief Complaint: Heent - History obtained from History obtained from: Patient (8-year-old male presents with an episode of right-sided epistaxis that has resolved by the time he presents to the emergency department denies being anticoagulated denies any trauma.Denies any history of FESS surgery.) Review of Systems Constitutional: reports: Reviewed and negative Eyes: reports: Reviewed and negative Ears: reports: Reviewed and negative Nose: reports: Epistaxis Throat: reports: Reviewed and negative Cardiac: reports: Reviewed and negative Respiratory: reports: Reviewed and negative GI: reports: Reviewed and negative : reports: Reviewed and negative Skin: reports: Reviewed and negative Musculoskeletal: reports: Reviewed and negative Neurologic: reports: Reviewed and negative Psychiatric: reports: Reviewed and negative Endocrine: reports: Reviewed and negative Immunocompromised: reports: Reviewed and negative PD PAST MEDICAL HISTORY - Past Medical History Past Medical History: Yes Cardiovascular: Hypertension, High cholesterol, [place] Respiratory: COPD Neuro: None Endocrine/Autoimmune: None GI: GERD, Hiatal hernia : None HEENT: None Psych: None Musculoskeletal: None Derm: None - Past Surgical History Past Surgical History: Yes Cardiovascular: Coronary stent HEENT: Cataracts - Present Medications Home Medications: Ambulatory Orders Medication Instructions Recorded Confirmed Albuterol Sulf [Ventolin Hfa 1 - 2 puffs INH Q4HR PRN 07/27/16 12/19/19 Inhaler] Aspirin [Aspirin EC] 81 mg PO DAILY 07/27/16 12/19/19 Atorvastatin Calcium 80 mg PO DAILY 07/27/16 12/19/19 Carvedilol 12.5 mg PO DAILY 07/27/16 12/19/19 Carvedilol 25 mg PO QPM 07/27/16 12/19/19 Fluticasone Propionate [Flovent 12 gm IH BID 07/27/16 12/19/19 Hfa] Losartan [Cozaar] 50 mg PO DAILY 07/27/16 12/19/19 Pantoprazole [Protonix] 40 mg PO DAILY 07/27/16 12/19/19 Furosemide [Lasix] 20 mg PO DAILY 09/24/18 12/19/19 Cyclobenzaprine [Flexeril] 10 mg PO TID PRN #20 tablet 12/19/19 Hydrocodone/Acetaminophen 1 - 2 each PO Q6H PRN #14 tablet 12/19/19 [Hydrocodon-Acetaminophen 5-325] - Allergies Allergies/Adverse Reactions: Allergies Allergy/AdvReac Type Severity Reaction Status Date / Time chlorpheniramine AdvReac Mild Running Verified 02/14/20 01:05 nose - Social History Does the pt smoke?: No Smoking Status: Never smoker Does the pt drink ETOH?: No Does the pt have substance abuse?: No - Immunizations Immunizations are current?: Yes - POLST Patient has POLST: No PD ED PE NORMAL - Vitals Vital signs reviewed: Yes - General General: Alert and oriented X 3, No acute distress - HEENT HEENT: Atraumatic, PERRL, Pharynx benign, Other (No active bleeding on exam no blood in the oropharynxNasal septum intact.Floor the mouth soft) - Neck Neck: Supple, no meningeal sign - Cardiac Cardiac: RRR, No murmur - Respiratory Respiratory: Clear bilaterally - Abdomen Abdomen: Normal bowel sounds, Soft, Non tender, Non distended - Derm Derm: Warm and dry - Extremities Extremities: No deformity - Neuro Neuro: Alert and oriented X 3 - Psych Psych: Normal mood, Normal affect Results - Vitals Vitals: Vital Signs - 24 hr 02/14/20 02/14/20 01:03 02:43 Temperature 36.7 C Heart Rate 66 58 L Respiratory 17 16 Rate Blood Pressure 210/72 H 172/72 H O2 Saturation 98 96 Oxygen O2 Source Room air PD MEDICAL DECISION MAKING - ED course Complexity details: re-evaluated patient (No active bleeding on reexamination multiple times.), considered differential (Epistaxis resolved. Will provide referral to nuclear weapons mechanical specialist.Afrin provided as well.), d/w patient Departure - Departure Disposition: 01 Home, Self Care Clinical Impression: Epistaxis Condition: Stable Instructions: ED Nosebleed Follow-Up: Charlie Palma MD [Primary Care Provider] - 02/14/20 Elias Rayo MD [Physician No Access] - 02/14/20 Comments: Use Afrin nasal spray as needed. Call your primary care provider today to schedule follow-up. Call the nuclear weapons mechanical specialist today to schedule follow-up. Discharge Date/Time: 02/14/20 02:44
[2020-02-14 02:44] VITALS: BP 172/72
== END 2020-02-14 02:44 | disposition home or self-care (01) ==
LOC: ED 00:48
DX: R04.0 Epistaxis (principal); I10 Essential (primary) hypertension; Z79.82 Long term (current) use of aspirin
CPT/HCPCS: 99282; 99283; A9270

== ENCOUNTER 2020-07-02 22:58 | Emergency (ER) | payer MEDICARE, OTHER ==
[2020-07-02 23:24] VITALS: BP 180/90
[2020-07-02] MEDS ORDERED: TETANUS/DIPHTHERIA/PERTUSSIS 0.5 ML SYRINGE IM ONE (23:29)
--- NOTE | 2020-07-02 23:31 | ED Physician Documentation ---
PD HPI UPPER EXT INJURY - Stated complaint Stated Complaint: RT MIDDLE FINGER LAC - Chief complaint Chief Complaint: Laceration - History obtained from History obtained from: Patient - History of Present Illness Location: Right, Finger (middle) Where injury occurred: Home Timing - onset: Today Timing - details: Abrupt onset (he was cutting food at home and knife slipped. Cut tip of finger and it bled briskly. He put on pressure and taped it. Here for eval to see if needs sutures/other care.) Associated symptoms: No: Weakness, Numbness Review of Systems Skin: reports: Laceration (s) Neurologic: denies: Focal weakness, Numbness PD PAST MEDICAL HISTORY - Past Medical History Past Medical History: Yes Cardiovascular: Hypertension, High cholesterol, [place] Respiratory: COPD Neuro: None Endocrine/Autoimmune: None GI: GERD, Hiatal hernia : None HEENT: None Psych: None Musculoskeletal: None Derm: None - Past Surgical History Past Surgical History: Yes Cardiovascular: Coronary stent HEENT: Cataracts - Present Medications Home Medications: Ambulatory Orders Medication Instructions Recorded Confirmed Albuterol Sulf [Ventolin Hfa 1 - 2 puffs INH Q4HR PRN 07/27/16 12/19/19 Inhaler] Aspirin [Aspirin EC] 81 mg PO DAILY 07/27/16 12/19/19 Atorvastatin Calcium 80 mg PO DAILY 07/27/16 12/19/19 Carvedilol 12.5 mg PO DAILY 07/27/16 12/19/19 Carvedilol 25 mg PO QPM 07/27/16 12/19/19 Fluticasone Propionate [Flovent 12 gm IH BID 07/27/16 12/19/19 Hfa] Losartan [Cozaar] 50 mg PO DAILY 07/27/16 12/19/19 Pantoprazole [Protonix] 40 mg PO DAILY 07/27/16 12/19/19 Furosemide [Lasix] 20 mg PO DAILY 09/24/18 12/19/19 Cyclobenzaprine [Flexeril] 10 mg PO TID PRN #20 tablet 12/19/19 Hydrocodone/Acetaminophen 1 - 2 each PO Q6H PRN #14 tablet 12/19/19 [Hydrocodon-Acetaminophen 5-325] - Allergies Allergies/Adverse Reactions: Allergies Allergy/AdvReac Type Severity Reaction Status Date / Time chlorpheniramine AdvReac Mild Running Verified 07/02/20 23:21 nose - Social History Does the pt smoke?: No Smoking Status: Never smoker Does the pt drink ETOH?: No Does the pt have substance abuse?: No - Immunizations Immunizations are current?: Yes - POLST Patient has POLST: No PD ED PE NORMAL - Vitals Vital signs reviewed: Yes - General General: Alert and oriented X 3, No acute distress, Well developed/nourished - Derm Derm: Normal color, Warm and dry - Extremities Extremities: Other (right middle finger tip with laceration with edges closed, no FB and no active bleeding. Not at nailbed.) - Neuro Neuro: Alert and oriented X 3, No motor deficit, No sensory deficit, Normal speech Results - Vitals Vitals: Vital Signs - 24 hr 07/02/20 23:21 Temperature 36.5 C Heart Rate 68 Respiratory 18 Rate Blood Pressure 180/90 H O2 Saturation 97 Oxygen O2 Source Room air PD MEDICAL DECISION MAKING - ED course Complexity details: considered differential (The lac is closed and not bleeding. Can be held with steri-strips. ), d/w patient Departure - Departure Disposition: 01 Home, Self Care Clinical Impression: Finger laceration Qualifiers: Encounter type: initial encounter Finger: middle finger Damage to nail status: without damage Foreign body presence: without foreign body Laterality: right Qualified Code(s): S61.212A - Laceration without foreign body of right middle finger without damage to nail, initial encounter Condition: Stable Record reviewed to determine appropriate education?: Yes Instructions: ED Laceration Hand Follow-Up: Lo Fields DNP [Primary Care Provider] - Comments: The glue and Steri-Strips in place and keep them clean and dry. Allow them to fall off on their own over several days. The wound should be then sealed up enough to be able to continue with normal care of cleaning soap and water and applying a little ointment and Band-Aids. Recheck if infection. You did get a tetanus booster today. Discharge Date/Time: 07/02/20 23:43
== END 2020-07-02 23:43 | disposition home or self-care (01) ==
LOC: ED 22:58
DX: S61.212A Laceration without foreign body of right middle finger without damage to nail, initial encounter (principal); W26.0XXA Contact with knife, initial encounter; Y93.G1 Activity, food preparation and clean up; Y92.009 Unspecified place in unspecified non-institutional (private) residence as the place of occurrence of the external cause; I10 Essential (primary) hypertension; Z95.5 Presence of coronary angioplasty implant and graft; Z23 Encounter for immunization
CPT/HCPCS: 12001; 90471; 99282; 99283

== ENCOUNTER 2020-07-04 08:00 | Outpatient (CLI) | payer MEDICARE, OTHER ==
[2020-07-04 18:40] LABS: BASOPHILS # (AUTO) 0.1 10^3/uL (0.0-0.1); EOSINOPHILS # (AUTO) 0.2 10^3/uL (0.0-0.7); EOSINOPHILS % (AUTO) 3.6 %; HGB - HEMOGLOBIN 12.7 g/dL (14.0-18.0); LYMPHOCYTES # (AUTO) 0.8 10^3/uL (1.5-3.5); LYMPHOCYTES % (AUTO) 11.7 %; MEAN CORPUSCULAR HGB CONC 31.6 g/dL (32.0-36.0); MEAN CORPUSCULAR VOLUME 94.8 fL (80.0-94.0); MEAN PLATELET VOLUME 12.9 fL (7.4-11.4); MONOCYTES # (AUTO) 0.8 10^3/uL (0.0-1.0); MONOCYTES % (AUTO) 11.3 %; NEUTROPHILS # (AUTO) 4.9 10^3/uL (1.5-6.6); NEUTROPHILS % (AUTO) 72.3 %; PLT - PLATELET COUNT 168 10^3/uL (130-450); RED BLOOD COUNT 4.24 10^6/uL (4.70-6.10); RED CELL DISTRIBUTION WIDTH 13.2 % (12.0-15.0); WHITE BLOOD COUNT 6.7 x10^3/uL (4.8-10.8)
[2020-07-04 18:59] LABS: ALBUMIN 4.1 g/dL (3.2-5.5); ALBUMIN/GLOBULIN RATIO 1.5 (1.0-2.2); BILIRUBIN,TOTAL 0.9 mg/dL (0.2-1.0); CALCIUM 9.7 mg/dL (8.5-10.3); CREATININE 1.1 mg/dL (0.6-1.2); TOTAL PROTEIN 6.8 g/dL (6.7-8.2)
== END 2020-07-04 23:59 | disposition home or self-care (01) ==
LOC: LAB.WCP 08:00
PROVIDERS: ATTEND Internal Medicine
DX: E87.5 Hyperkalemia (principal); I42.9 Cardiomyopathy, unspecified; N17.9 Acute kidney failure, unspecified; N18.30 Chronic kidney disease, stage 3 unspecified; I12.9 Hypertensive chronic kidney disease with stage 1 through stage 4 chronic kidney disease, or unspecified chronic kidney disease
CPT/HCPCS: 36415; 80053; 83880; 84443; 85025

== ENCOUNTER 2020-07-25 09:17 | Outpatient (CLI) | payer MEDICARE, OTHER ==
[2020-07-25 10:07] VITALS: BP 130/84
--- NOTE | 2020-07-25 10:07 | SLEEP CARE CONSULTATION ---
Information from patient questionnaire entered by Lori Hernandez. I have reviewed and concur with the information entered by Lori Hernandez. This document represents the service I personally performed and the decisions made by me, Litzy Goldberg ARNP. History of Present Illness Service Date and Time: 07/25/2020916 Reason for Visit: New patient Chief Complaint: reports: Unrefreshed sleep, Snoring, Excessive daytime sleepiness, Fatigue. denies: Observed pauses in breathing, Frequent awakenings at night (not sure) Date of Onset: not sure; worse in last 2 years Usual bedtime: varies depending on activities Time it takes to fall asleep: normally don't sleep much at night Snores at night: Yes (spouse said i did) Observed to quit breathing while asleep: No (not sure) Sleeps alone due to snoring: No Number of times waking at night: not sure Reasons for waking at night: reports: Bathroom. denies: Choking, Snoring, Gasping for air Toss, Turn, or Twitch while sleeping: Yes Recalls having dreams: Yes Usually gets out of bed at: depends on when i went to bed Feels refreshed in the morning: No (can't really say, not sure) Morning headache: No Sleepy or fatigued during the day: Yes (sometimes) Ever fallen asleep while driving: No Takes day naps: Yes (sometimes) Dreams during day naps: Yes (sometimes) Prior sleep studies: No Additional HPI information: I had the pleasure of seeing FUENTES MUKHERJEE today regarding the possibility of him having a sleep disorder. His current complaints are snoring and daily tiredness/fatigue. He states his late in 2019 and he has been able to sleep well since then. Since she has gone he doesn't sleep much at night. He can't really say if he feels rested. He is not sure how many times he gets up during times of sleep. He states he doesn't sleep much at night and naps sometimes during the day when sitting on his chair/couch. He states his told him he snored but not that he had any pauses any breathing. He has a new PCP who sent him here for testing. He does have a history of hypertension and cardiovascular disease. - Parasomnia Symptoms Ever been unable to move upon waking from sleep: No Walks in sleep: No Talks in sleep: No Ever acted out dreams in sleep: Yes Ever felt weak in the knees when startled or emotional: No Bothered by creepy, crawly, restless sensations in legs: No Problems with memory or concentration: No Subjective Initial [place] Sleepiness Scale score: 7 (in 2019) Past Medical History Past Medical History: reports: Hypertension, Arthritis, Coronary Heart Disease (stent placed 2013 and angioplasty Jul 2019), GERD. denies: Congestive Heart Failure, Diabetes, Arrythmia, Anxiety, Depression Social History The patient's occupation is a Retired. Patient is / and lives in [place]. Have you smoked in the past 12 months: No Alcohol use: No Caffeine use: Yes Caffeine amount and frequency: usually no, but sometimes will drink tea if decaf not available Family History Family history of sleep disordered breathing: Yes (father) Family Hx Sleep Apnea: Father: Snoring Allergies and Home Medications Drug allergies reviewed: Yes (chlorpheniramine) Home medication list reviewed: Yes Allergy and home medication list: Pepcid, 20 mg aspirin 81 mg Carvedilol 12.5 mg Losartan 25 mg Atorvastatin 80 mg Review of Systems Cardiovascular: reports: high blood pressure. denies: chest pain, irregular heart rate or pulse Respiratory: reports: wheeze (sometimes) Gastrointestinal: reports: heartburn Neurological: denies: headaches Psychiatric: denies: anxiety, depression Ear/Nose/Throat: reports: sinus problems (deviated septum), tonsillectomy, other (deviated septum, left from ). denies: nasal congestion, dry mouth/throat, wisdom teeth removed Endocrine: reports: excessive thirst (since ) Musculoskeletal: reports: joint swelling (fingers on each hand) Immunologic: denies: allergies to food or environment Physical Exam Blood Pressure: 130/84 Cuff size: long Heart Rate: 60 O2 Saturation: 98 Height: 6 ft Weight: 219 lb Body Mass Index: 29.7 BMI Classification: Overweight Neck circumference: 17.3 (inches) Nostrils: patent to airflow Turbinates: normal Septum: deviated left Mouth and throat: narrow oropharynx Uvula visualization: 25% Mallampati Class III Tongue: enlarged in size with teeth [place] on lateral edges Tonsils: absent bilaterally Heart: regular rate and rhythm Lungs: clear bilaterally Impression and Plan 1. Suspected Obstructive Sleep Apnea-Hypopnea Syndrome, as suggested by a history of loud and irregular snoring, unrefreshed sleep/fatigue, and excessive daytime sleepiness. I reviewed with patient that a narrow oropharynx and obesity are common predisposing factors for obstructive sleep apnea-hypopnea syndrome. I recommend proceeding to polysomnography to confirm the diagnosis and to assess severity. If the patient has significant sleep disordered breathing, a manual CPAP titration study will also be performed to find the optimal treatment pressure. I informed the patient of what the sleep studies involve and after some discussion, obtained agreement to proceed. The pathophysiology of obstructive sleep apnea-hypopnea syndrome was discussed with the patient and health risks of cardiovascular and cerebrovascular disease if not treated. AAS brochure for obstructive sleep apnea-hypopnea syndrome given and reviewed. Risks of drowsy driving discussed in detail and patient advised to avoid long distance driving and to jawbone puller at the first sign of drowsiness. Patient agreed to plan. * Schedule polysomnography +- manual CPAP titration study and return in 1-2 weeks after the study to discuss result and initiate therapy. * Avoid long distance driving or driving when feeling sleepy. * Avoid sedative and muscle relaxant around bedtime. * Attempt to lose weight. * Review instructions provided by trained office staff on how to prepare for the sleep study. * Return for follow-up after sleep study completed. Counseling Topics: Weight loss health impact Visit Type: In Office Time Spent with Patient (minutes): 41 Provider Statement: I spent 100% of the Face to Face Visit with the patient with greater than 50% spent counseling the patient and coordination of care.
--- OUTSIDE RECORDS SUMMARY | 2020-08-02 00:08 | EXTERNAL MEDICAL SUMMARY RPT | Continuity of Care Document ---
:1940 Demographics Phone Unavailable Preferred Language Khmer Marital Status Unknown Congregation Affiliation Unknown Race Unknown Ethnic Group Unknown Author Organization [place] Address [address] [place] [address] Phone Care Team Providers Name Role Phone Diamond Unavailable Unavailable MD Unavailable Unavailable Diamond Unavailable Unavailable Langrock Unavailable Unavailable Teresa Unavailable Unavailable Lanegraff Unavailable Unavailable MD Unavailable Unavailable Yonatan Unavailable Unavailable Problems date description facility 2013-07-28 16:[address] [facility] 2013-07-28 16:[address] [facility] 2013-07-28 16:45 CARDIAC DYSRHYTHMIAS NEC [facility] 2013-07-28 16:45 VIRAL PNEUMONIA NOS [facility] 2013-07-28 16:[address] [facility] 2013-07-28 16:45 HX-PROSTATIC MALIGNANCY [facility] 2013-07-28 16:45 OTH MED,LT,CURRENT USE [facility] 2013-11-15 14:[address] [facility] 2013-11-15 14:50 BENIGN HYPERTENSION [facility] 2013-11-15 14:50 ROUTINE MEDICAL EXAM [facility] 2013-11-26 10:[address] [facility] 2014-02-20 20:[address] [facility] 2014-02-20 20:[address] [facility] 2014-02-20 20:[address] [facility] 2014-02-20 20:28 DIAPHRAGMATIC HERNIA [facility] 2014-02-20 20:[address] [facility] 2014-02-20 20:[address] 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 2014-03-29 07:22 CHR ISCHEMIC HRT DIS [facility] 2014-04-04 13:06 BENIGN HYPERTENSION [facility] 2014-04-04 13:06 CHR ISCHEMIC HRT DIS [facility] 2014-04-04 13:06 RESPIRATORY ABNORM [facility] edical Center 2014-04-26 07:24 HYPOPOTASSEMIA [facility] 2014-04-26 07:24 BENIGN HYPERTENSION [facility] 2014-04-26 07:24 CHR ISCHEMIC HRT DIS [facility] 2014-04-26 07:24 RESPIRATORY ABNORM [facility] edical Center 2014-05-05 08:41 CHR ISCHEMIC HRT DIS [facility] 2014-05-05 08:41 RESPIRATORY ABNORM [facility] edical Center 2014-05-12 10:47 HYPOPOTASSEMIA [facility] 2014-06-21 11:51 HYPOPOTASSEMIA [facility] 2014-06-21 11:51 CHR ISCHEMIC HRT DIS [facility] 2014-06-21 11:51 RESPIRATORY ABNORM [facility] edical Center 2014-07-22 12:45 HYPOPOTASSEMIA [facility] Medic [facility] 2014-08-29 15:50 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 2015-10-17 08:00 HYPO-OSMOLALITY AND [facility] HYPONATREMIA 2015-11-28 08:00 CARDIOMYOPATHY, UNSPECIFIED 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 2016-10-01 21:06 HYPO-OSMOLALITY AND [facility] HYPONATREMIA 2016-10-01 21:[address] 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 2016-10-16 12:00 HYPO-OSMOLALITY AND [facility] HYPONATREMIA 2016-10-16 12:[address] 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 2016-12-23 08:00 CHRONIC OBSTRUCTIVE PULMONARY [facility] DISEASE, UNSPECIFIED 2017-06-06 13:[address] [facility] 2017-06-06 13:23 ESSENTIAL (PRIMARY) [facility] HYPERTENSION 2018-06-08 13:20 HYPO-OSMOLALITY AND [facility] HYPONATREMIA 2018-06-08 13:[address] 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[facility] DISEASE W (ACUTE) EXACERBATION 2018-09-24 11:48 PURE HYPERCHOLESTEROLEMIA, [facility] UNSPECIFIED 2018-09-24 11:48 ESSENTIAL (PRIMARY) [facility] HYPERTENSION 2018-09-24 11:48 OLD MYOCARDIAL INFARCTION [facility] 2018-09-24 11:48 PNEUMONIA, UNSPECIFIED ORGANISM [facility] 2018-09-24 11:48 CHRONIC OBSTRUCTIVE PULMONARY [facility] DISEASE, UNSPECIFIED 2018-09-24 11:48 SHORTNESS OF BREATH [facility] 2018-09-24 11:48 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 2019-01-11 16:58 CHRONIC KIDNEY DISEASE, STAGE 3 [facility] (MODERATE) 2019-04-01 15:47 HYPERLIPIDEMIA, UNSPECIFIED [facility] 2019-04-01 15:47 CARDIOMYOPATHY, UNSPECIFIED [facility] 2019-04-01 15:47 PNEUMONIA, UNSPECIFIED ORGANISM [facility] 2019-04-01 15:47 ACUTE KIDNEY FAILURE, [facility] UNSPECIFIED 2019-04-01 15:47 CHRONIC KIDNEY DISEASE, STAGE 3 [facility] (MODERATE) 2019-05-19 08:00 ACUTE KIDNEY FAILURE, [facility] UNSPECIFIED 2019-06-11 09:00 CARDIOMYOPATHY, UNSPECIFIED [facility] 2019-09-03 14:59 ACUTE [facility]ID[facility] FAILURE, [facility]NSPEC[facility] 2019-09-03 14:59 CHRONIC KIDNEY DISEASE, STAGE 3 [facility] (MODERATE) 2019-10-04 14:18 CHRONIC KIDNEY DISEASE, STAGE 3 [facility] (MODERATE) 2019-11-02 08:00 CHRONIC KIDNEY DISEASE, STAGE 3 [facility] (MODERATE) 2019-11-04 07:[address] [facility] 2019-12-01 14:01 ATHSCL HEART DISEASE OF [place] [facility] CORONARY ARTERY W/O ANG PCTRS 2019-12-19 03:43 ESSENTIAL (PRIMARY) [facility] HYPERTENSION 2019-12-19 03:[address] [facility] 2020-01-10 14:43 CARDIOMYOPATHY, UNSPECIFIED [facility] 2020-01-10 14:43 DORSALGIA, UNSPECIFIED [facility] 2020-01-10 14:43 CHRONIC KIDNEY DISEASE, STAGE 3 [facility] (MODERATE) 2020-01-10 14:43 OTHER FORMS OF DYSPNEA [facility] 2020-02-07 12:45 CHRONIC KIDNEY DISEASE, STAGE 3 [facility] (MODERATE) 2020-02-14 00:48 ESSENTIAL (PRIMARY) [facility] HYPERTENSION 2020-02-14 00:[address] [facility] 2020-02-14 00:48 PRISON (CURRENT) USE OF [facility] ASPIRIN 2020-06-20 00:00:00 TSH WITH REFLEX TO FT4 [facility] 2020-06-20 00:00:00 COMPREHENSIVE METABOLIC PANEL [facility] 2020-06-20 00:00:00 LIPID SCREEN, FASTING [facility] P rimary Care [facility] 2020-06-20 00:00:00 B-WORKERS COMPENSATION LEGAL SECRETARY [facility]20 00:00:00 CBC W/Diff/Plt [facility] Prim [facility] 2020-07-02 22:58 ESSENTIAL (PRIMARY) [facility] HYPERTENSION 2020-07-02 22:58 LACERATION W/O FB OF R MID [facility] FINGER W/O DAMAGE TO NA 2020-07-02 22:58 CONTACT WITH KNIFE, INITIAL [facility] ENCOUNTER 2020-07-02 22:[address] IN UNS NON-[facility] (PRIVATE) RESIDENC 2020-07-02 22:58 ACTIVITY, FOOD PREPARATION AND [facility] CLEAN UP 2020-07-02 22:58 ENCOUNTER FOR IMMUNIZATION [facility] 2020-07-02 22:58 PRESENCE OF CORONARY [facility] AND GRAFT 2020-07-04 00:00 HYPERLIPIDEMIA, UNSPECIFIED [facility] 2020-07-04 00:00 CARDIOMYOPATHY, UNSPECIFIED [facility] 2020-07-04 00:00 [address] FOR[address] OF DYSPNEA [facility] edical Tiline 2020-07-04 00:00:00 TSH WITH REFLEX TO FT4 [facility] [place] [facility] 2020-07-04 00:00:00 Open wound(s) (multiple) of [facility] unspecified site(s) except [place] [facility] limbs, without mention of complication 2020-07-04 00:00:00 COMPREHENSIVE METABOLIC PANEL [facility] Primary [facility] [place] [facility] 2020-07-04 00:00:00 B-WORKERS COMPENSATION LEGAL SECRETARY [facility] Prim guzman Care [place] [facility] 2020-07-04 00:00:00 CBC W/Diff/Plt [facility] Prim guzman Care [place] [facility] 2020-07-04 00:00:00 Laceration without foreign body [facility] Primary Care of right middle finger without [place] [facility] damage to nail, initial encounter 2020-07-04 00:00:00 Encounter for other specified [facility] Primary Care aftercare [place] [facility] 2020-07-04 00:00:00 Wound care [facility] Prim guzman Care [place] [facility] 2020-07-04 00:00:00 Deep laceration of finger [facility] [place] [facility] 2020-07-04 08:00 HYPERLIPIDEMIA, UNSPECIFIED [facility] 2020-07-04 08:00 HYPERKALEMIA [facility] 2020-07-04 08:00 HYPERTENSIVE [facility] W STG 1-4/UNSP CHR KDNY 2020-07-04 08:00 CARDIOMYOPATHY, UNSPECIFIED [facility] 2020-07-04 08:00 [facility] 2020-07-04 08:00 CHRONIC KIDNEY DISEASE, STAGE 3 [facility] UNSPECIFIED 2020-07-04 08:00 OTHER FORMS OF DYSPNEA [facility] 2020-07-06 00:00:00 Aortic valve [facility] [place] [facility] 2020-07-06 00:00:00 Asthma, unspecified [facility] [place] [facility] 2020-07-06 00:00:00 Other [facility] and [facility] abnormality [place] [facility] 2020-07-06 00:00:00 Encounters for other specified [facility] administrative purpose [place] [facility] 2020-07-06 00:00:00 Malignant neoplasm of prostate [facility] [place] [facility] 2020-07-06 00:00:00 Other nonrheumatic aortic valve idb [facility] Primary [facility] disorders [place] [facility] 2020-07-06 00:00:00 Mild intermittent asthma, [facility] uncomplicated [place] [facility] 2020-07-06 00:00:00 Snoring [facility] Care [place] [facility] 2020-07-06 00:00:00 Other specified counseling [facility] [place] [facility] 2020-07-06 00:00:00 Snoring symptoms [facility] Prim g[facility]uman Care [place] [facility] 2020-07-06 00:00:00 Health-related behavior [facility] [place] [facility] 2020-07-06 00:00:00 Tobacco use and exposure [facility] [place] [facility] 2020-07-06 00:00:00 Exercise [facility] Care [place] [facility] 2020-07-06 00:00:00 Never smoker [facility] Care [place] [facility] 2020-07-06 00:00:00 Adenocarcinoma of prostate [facility] [place] [facility] 2020-07-06 00:00:00 Mild intermittent asthma [facility] [place] [facility] 2020-07-06 00:00:00 Procedure carried out on [facility] subject [place] [facility] 2020-07-06 00:00:00 Aortic valve sclerosis [facility] [place] [facility] 2020-07-06 00:00:00 Alcohol use [facility] Care [place] [facility] 2020-07-06 00:00:00 Tobacco [facility] status [facility] [place] [facility] 2020-07-06 00:00:00 Total score? [facility] guzman Care [place] [facility] 2020-07-08 00:00:00 Malignant neoplasm of prostate [facility] [place] [facility] 2020-07-08 00:00:00 Malignant tumor of prostate [facility] Primary [facility] [place] [facility] Allergies date description facility CHLORINE [facility] HYDROCODONE-ACETAMINOPHEN [facility] NO KNOWN ENVIRONMENTAL ALLERGIES [facility] NO ALLERGY INFORMATION AVAILABLE [facility] PENICILLINS [facility] SULFA (SULFONAMIDE ANTIBIOTICS) [facility] INFLUENZA VIRUS VACCINES [facility] NO KNOWN ALLERGIES [facility] FISH CONTAINING PRODUCTS [facility] YEAST, DRIED [facility] GOLD AU 198 [facility] IODINE [facility] HYDROCODONE-ACETAMINOPHEN [facility] ADHESIVE TAPE-SILICONES [facility] ASPIRIN [facility] NO KNOWN ENVIRONMENTAL ALLERGIES [facility] NO ALLERGY INFORMATION AVAILABLE [facility] chlorpheniramine [facility] PENICILLINS [facility] SULFA (SULFONAMIDE ANTIBIOTICS) [facility] FISH CONTAINING PRODUCTS [facility] HYDROCODONE [facility] GOLD AU 198 [facility] CLOTRIMAZOLE [facility] GABAPENTIN [facility] SUCCINYLCHOLINE [facility] BEE VENOM PROTEIN (HONEY BEE) [facility]ODINE [facility] [id number] [facility] FLU [id number]) [facility]pheniramine [facility] ALPRAZOLAM [facility] AMITRIPTYLINE [facility] ATORVASTATIN [facility] CYCLOBENZAPRINE [facility] DICLOFENAC SODIUM [facility] DIPHENHYDRAMINE HCL [facility] DOXYCYCLINE [facility] DULOXETINE [facility] ELETRIPTAN HBR [facility] GABAPENTIN [facility] HYDROXYZINE PAMOATE [facility] ISOSORBIDE MONONITRATE [facility] M [facility]ical Center KETOROLAC TROMETHAMINE [facility] M [facility]ical Center LEVOFLOXACIN [facility] MEPERIDINE [facility] METFORMIN [facility] METHOCARBAMOL [facility] NAPROXEN [facility] PENICILLINS [facility] PHENYLEPHRINE HCL [facility] PRAVASTATIN [facility] PREGABALIN [facility] PSEUDOEPHEDRINE HCL [facility] RIZATRIPTAN BENZOATE [facility] Med ical Center ROSUVASTATIN [facility] SULFA (SULFONAMIDE ANTIBIOTICS) [facility] SUMATRIPTAN [facility] TOPIRAMATE [facility] ASPIRIN [facility] chlorpheniramine [facility] NO KNOWN ENVIRONMENTAL ALLERGIES [facility] SOLEDAD INHIBITORS [facility] PENICILLINS [facility] SULFA (SULFONAMIDE ANTIBIOTICS) [facility] NO KNOWN ALLERGIES [facility] FISH CONTAINING PRODUCTS [facility] EMPAGLIFLOZIN [facility] AMLODIPINE [facility] AMOXICILLIN [facility] LISINOPRIL [facility] IODINE [facility] [id number] [facility] ASPIRIN-DIPYRIDAMOLE [facility] Med ical Center OXYCODONE-ACETAMINOPHEN [facility] SULFAMETHOXAZOLE-TRIMETHOPRIM [facility] Medications date description facility 2020-07-06 00:00:00 null [facility] Prim [facility] [place] [facility] 2020-07-06 00:00:00 null [facility] [place] [facility] 2020-07-06 00:00:00 DICLOFENAC SODIUM [facility] [place] [facility] Procedures date description facility 2020-07-04 00:00:00 TSH WITH REFLEX TO FT4 [facility] [place] [facility] date description facility 2020-07-04 00:00:00 COMPREHENSIVE METABOLIC PANEL [facility] [place] [facility] date description facility 2020-07-04 00:00:00 B-WORKERS COMPENSATION LEGAL SECRETARY [facility] Prim [facility] [place] [facility] date description facility 2020-07-04 00:00:00 CBC W/Diff/Plt [facility] [place] [facility] date description facility 2020-07-04 00:00:00 [facility] [place] [facility] Results Social History date description facility 2020-07-06 00:00:00 Never smoker [facility] [place] [facility] Social History date description facility 2020-07-06 00:00:00 Never smoker [facility] [place] [facility] date description facility [id number]
== END 2020-07-25 09:18 | disposition home or self-care (01) ==
LOC: SC 09:17
PROVIDERS: ATTEND Nurse Practitioner Family
DX: G47.10 Hypersomnia, unspecified (principal); R53.83 Other fatigue; R06.83 Snoring; E66.3 Overweight; Z68.29 Body mass index [BMI] 29.0-29.9, adult
CPT/HCPCS: 99203; G0463; 99212

== ENCOUNTER 2020-10-02 20:37 | Outpatient (CLI) | payer MEDICARE, OTHER | END 2020-10-02 20:38 | disposition home or self-care (01) | LOC: SC 20:37 | PROVIDERS: ATTEND Nurse Practitioner Family | DX: G47.61 Periodic limb movement disorder (principal); G47.10 Hypersomnia, unspecified; R53.83 Other fatigue; G47.8 Other sleep disorders; E66.3 Overweight; Z68.29 Body mass index [BMI] 29.0-29.9, adult | CPT/HCPCS: 95810 ==

== ENCOUNTER 2020-10-05 13:13 | Outpatient (CLI) | payer MEDICARE, OTHER ==
--- NOTE | 2020-10-05 13:42 | SLEEP CARE CONSULTATION ---
Information from patient questionnaire entered by Edward Krishnamurthy. I have reviewed and concur with the information entered by Edward Krishnamurthy. This document represents the service I personally performed and the decisions made by , Litzy Goldberg ARNP. History of Present Illness Service Date and Time: 10/05/2020 1313 Initial [place] Sleepiness Scale score: 7 Current [place] Sleepiness Scale score: 11 Additional HPI information: FUENTES MUKHERJEE returns for follow up and results of the recently performed polysomnography. His study was inconclusive due to inadequate sleep during the study. His average AHI was 5.1 with a nikky oxygen saturation of 90%. Snore was light in intensity and there was severe periodic leg movement of sleep. Patient states he did not feel that he slept at all during the night of the sleep study. He was not surprised that the study was sub-optimal and inconclusive. Sleep Study - Results Type of Sleep Study: Polysomnography Prior sleep studies: No Polysomnography/Home Sleep Study results: IMPRESSION: The quality of the study is good. The patient had very poor sleep efficiency. The sleep architecture was abnormal for lack of REM sleep. Respiratory monitoring showed mild Ramón- Ramírez respiration (AHI = 5.1) without hypoxia (nikky oxygen saturation of 90%). The patient slept almost exclusively in supine position (supine AHI = 0; non-supine = 6.47). Snore was light in intensity. There was severe periodic leg movement of sleep not associated with sleep fragmentation. Cardiac rhythm was normal sinus rhythm with frequent premature ventricular contractions, occasionally in bigeminy.. No abnormal behavior (parasomnia) observed during the night. CONCLUSIONS and RECOMMENDATIONS: 1. This is an inconclusive in-laboratory polysomnography due to inadequate sleep. The study should be repeated or a home sleep apnea test (HSAT) ordered. 2. 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 Clinical correlation advised. Allergies and Home Medications Drug allergies reviewed: Yes (chlophenaramine) Home medication list reviewed: Yes (no new medications) Review of Systems Review of systems same as previous: Yes (no changes) Physical Exam Heart Rate: 59 O2 Saturation: 98 Height: 6 ft Weight: 224 lb Body Mass Index: 30.4 BMI Classification: Obese Impression and Plan 1. Suspected Obstructive Sleep Apnea-Hypopnea Syndrome, as suggested by a hist ory of loud and irregular snoring, unrefreshed sleep, and excessive daytime sleepiness. His PSG was suboptimal because the patient did not sleep enough during the study and it was recommended that he repeat the PSG or try to do a HST. He voiced agreement. I offered to give him a prescription for a sleep aide for the night but he declined at this time. He would like to have a in lab PSG if possible. I advised him that he would have to be referred out to have this test done and he voiced understanding. The pathophysiology of obstructive sleep apnea-hypopnea syndrome was discussed with the patient and health risks of cardiovascular and cerebrovascular disease if not treated. Risks of drowsy driving discussed in detail and patient advised to avoid long distance driving and to tap puller at the first sign of drowsiness. Patient agreed to plan. * Schedule polysomnography/ HST. * Avoid long distance driving or driving when feeling sleepy. * Avoid alcohol, sedative and muscle relaxant around bedtime. * Attempt to lose weight. * Review instructions provided by trained office staff on how to prepare for the sleep study. * Return for follow-up after sleep study completed. Counseling Topics: Weight loss health impact Visit Type: In Office Time Spent with Patient (minutes): 16 Provider Statement: I spent 100% of the Face to Face Visit with the patient with greater than 50% spent counseling the patient and coordination of care.
== END 2020-10-05 13:14 | disposition home or self-care (01) ==
LOC: SC 13:13
PROVIDERS: ATTEND Nurse Practitioner Family
DX: G47.10 Hypersomnia, unspecified (principal); G47.8 Other sleep disorders; R06.83 Snoring; E66.9 Obesity, unspecified; Z68.30 Body mass index [BMI] 30.0-30.9, adult
CPT/HCPCS: 99212; G0463

== ENCOUNTER 2021-02-06 15:10 | Outpatient (CLI) | payer MEDICARE, OTHER ==
[2021-02-06 18:44] LABS: BASOPHILS # (AUTO) 0.1 10^3/uL (0.0-0.1); BASOPHILS % (AUTO) 0.8 %; EOSINOPHILS # (AUTO) 0.2 10^3/uL (0.0-0.7); HCT - HEMATOCRIT 36.7 % (42.0-52.0); HGB - HEMOGLOBIN 12.1 g/dL (14.0-18.0); LYMPHOCYTES # (AUTO) 1.1 10^3/uL (1.5-3.5); LYMPHOCYTES % (AUTO) 13.7 %; MEAN CORPUSCULAR HEMOGLOBIN 30.6 pg (27.0-31.0); MEAN CORPUSCULAR VOLUME 92.7 fL (80.0-94.0); MEAN PLATELET VOLUME 11.8 fL (7.4-11.4); MONOCYTES # (AUTO) 1.1 10^3/uL (0.0-1.0); MONOCYTES % (AUTO) 13.6 %; NEUTROPHILS # (AUTO) 5.4 10^3/uL (1.5-6.6); NEUTROPHILS % (AUTO) 68.6 %; PLT - PLATELET COUNT 197 10^3/uL (130-450); RED BLOOD COUNT 3.96 10^6/uL (4.70-6.10); RED CELL DISTRIBUTION WIDTH 13.3 % (12.0-15.0); WHITE BLOOD COUNT 7.9 x10^3/uL (4.8-10.8)
[2021-02-06 18:50] LABS: ALBUMIN 4.3 g/dL (3.2-5.5); ALBUMIN/GLOBULIN RATIO 1.5 (1.0-2.2); ALKALINE PHOSPHATASE 67 IU/L (42-121); ALT ALANINE AMINOTRANSFERASE 15 IU/L (10-60); AST ASPARTATE AMINOTRANSFERASE 18 IU/L (10-42); BILIRUBIN,TOTAL 1.4 mg/dL (0.2-1.0); BUN - BLOOD UREA NITROGEN 43 mg/dL (6-20); CALCIUM 9.4 mg/dL (8.5-10.3); CARBON DIOXIDE - CO2 27 mmol/L (21-32); CHLORIDE 91 mmol/L (101-111); CHOL/HDL RATIO 2.8 (<5.0); CHOLESTEROL 117 mg/dL; CREATININE 1.7 mg/dL (0.6-1.2); GFR - MDRD 39 (>89); GLUCOSE 108 mg/dL (70-100); HDL CHOLESTEROL 42 mg/dL; LDL CHOLESTEROL,CALCULATED 57 mg/dL; LDL/HDL RATIO 1.4 (<3.6); POTASSIUM 4.2 mmol/L (3.5-5.0); SODIUM 131 mmol/L (135-145); TOTAL PROTEIN 7.1 g/dL (6.7-8.2); TRIGLYCERIDES 91 mg/dL; VLDL CHOLESTEROL 18 mg/dL
[2021-02-06 19:02] LABS: CREATININE,URINE 142.3 mg/dL; MICROALBUMIN,URINE 62.9 mg/dL (0-300.0)
[2021-02-06 20:46] LABS: ESTIMATED AVERAGE GLUCOSE 128 mg/dL (70-100); HEMOGLOBIN A1c% 6.1 % (4.27-6.07)
== END 2021-02-06 23:59 | disposition home or self-care (01) ==
LOC: LAB.WCP 15:10
PROVIDERS: ATTEND Internal Medicine
DX: I25.10 Atherosclerotic heart disease of native coronary artery without angina pectoris (principal); C61 Malignant neoplasm of prostate; R73.01 Impaired fasting glucose
CPT/HCPCS: 36415; 80053; 80061; 82043; 82570; 83036; 83721; 84153; 85025

== ENCOUNTER 2021-03-30 12:29 | Outpatient (CLI) | payer MEDICARE, OTHER | END 2021-03-30 12:30 | disposition home or self-care (01) | LOC: SC 12:29 | PROVIDERS: ATTEND Nurse Practitioner Family | DX: Z53.9 Procedure and treatment not carried out, unspecified reason (principal) ==

== ENCOUNTER 2021-04-03 12:36 | Outpatient (CLI) | payer MEDICARE, OTHER ==
--- NOTE | 2021-04-03 14:13 | SLEEP CARE CONSULTATION ---
Information from patient questionnaire entered by Lori Hernandez. I have reviewed and concur with the information entered by Lori Hernandez. This document represents the service I personally performed and the decisions made by , Litzy Goldberg ARNP. History of Present Illness Service Date and Time: 04/03/2021 1236 Previous diagnosis: Mild, Obstructive Sleep Apnea-Hypopnea Syndrome AHI: 5.1 (in 2020) Reason for follow up: other (5 month with positional therapy) Prior sleep studies: Yes Year and Where: 2020 - [facility] Type of Sleep Study: Polysomnography HPI additional information: FUENTES MUKHERJEE was previously diagnosed to have mild, AHI 5.1, obstructive sleep apnea-hypopnea syndrome and returned today for 5 month follow-up. Subjective Initial [place] Sleepiness Scale score: 7 (in 2020) Current [place] Sleepiness Scale score: 0 Allergies and Home Medications Home medication list reviewed: Yes (no changes) Review of Systems Review of systems same as previous: Yes (no changes) Physical Exam Heart Rate: 61 O2 Saturation: 96 Height: 6 ft Weight: 223 lb Body Mass Index: 30.2 BMI Classification: Obese Impression and Plan 1. Suspected Obstructive Sleep Apnea-Hypopnea Syndrome, as suggested by a history of loud and irregular snoring, frequent awakening during the night, unrefreshed sleep, excessive daytime sleepiness and cognitive impairment. Patient's last study was inconclusive due to insufficient time sleeping. He tried again at [facility] but was still unable to sleep. He was sent home with a HST testing equipmet but was unable to do the test. He was given a prescription for Zaleplon 5 mg to help him sleep at his study and would like to try doing the test again using the sleep aid. I recommend proceeding to polysomnography to confirm the diagnosis and to assess severity. If the patient has significant sleep disordered breathing, a manual CPAP titration study will also be performed to find the optimal treatment pressure. I informed the patient of what the sleep studies involve and after some discussion, obtained agreement to proceed. The pathophysiology of obstructive sleep apnea-hypopnea syndrome was discussed with the patient and health risks of cardiovascular and cerebrovascular disease if not treated. Risks of drowsy driving discussed in detail and patient advised to avoid long distance driving and to thread puller at the first sign of drowsiness. Patient agreed to plan. I also reviewed the benefit of consistent device use of CPAP for hypertension, cardiac disease and gastric reflux. * Schedule polysomnography +- manual CPAP titration study and return in 1-2 weeks after the study to discuss result and initiate therapy. * Avoid long distance driving or driving when feeling sleepy. * Avoid alcohol, sedative and muscle relaxant around bedtime. * Attempt to lose weight. * Review instructions provided by trained office staff on how to prepare for the sleep study. * Return for follow-up after sleep study completed. Counseling Topics: Weight loss health impact Visit Type: In Office Time Spent with Patient (minutes): 23 Provider Statement: I spent 100% of the Face to Face Visit with the patient with greater than 50% spent counseling the patient and coordination of care.
== END 2021-04-03 12:37 | disposition home or self-care (01) ==
LOC: SC 12:36
PROVIDERS: ATTEND Nurse Practitioner Family
DX: G47.33 Obstructive sleep apnea (adult) (pediatric) (principal); E66.9 Obesity, unspecified; Z68.30 Body mass index [BMI] 30.0-30.9, adult
CPT/HCPCS: 99212; G0463

== ENCOUNTER 2021-07-23 09:11 | Outpatient (CLI) | payer MEDICARE, OTHER ==
[2021-07-23 20:21] LABS: CALCIUM 9.1 mg/dL (8.5-10.3); CREATININE 1.6 mg/dL (0.6-1.2); POTASSIUM 3.5 mmol/L (3.5-5.0)
[2021-07-23 21:23] LABS: ESTIMATED AVERAGE GLUCOSE 123 mg/dL (70-100); HEMOGLOBIN A1c% 5.9 % (4.27-6.07)
== END 2021-07-23 09:12 | disposition home or self-care (01) ==
LOC: LAB.N 09:11
PROVIDERS: ATTEND Internal Medicine
DX: I42.9 Cardiomyopathy, unspecified (principal); R73.01 Impaired fasting glucose
CPT/HCPCS: 36415; 80048; 83036

== ENCOUNTER 2022-10-11 07:51 | Outpatient (CLI) | payer MEDICARE, OTHER ==
[2022-10-11 12:03] LABS: BASOPHILS # (AUTO) 0.1 10^3/uL (0.0-0.1); EOSINOPHILS # (AUTO) 0.3 10^3/uL (0.0-0.7); EOSINOPHILS % (AUTO) 4.2 %; HCT - HEMATOCRIT 38.7 % (42.0-52.0); HGB - HEMOGLOBIN 12.9 g/dL (14.0-18.0); LYMPHOCYTES # (AUTO) 1.4 10^3/uL (1.5-3.5); LYMPHOCYTES % (AUTO) 17.3 %; MEAN CORPUSCULAR HEMOGLOBIN 30.9 pg (27.0-31.0); MEAN CORPUSCULAR HGB CONC 33.3 g/dL (32.0-36.0); MEAN CORPUSCULAR VOLUME 92.6 fL (80.0-94.0); MEAN PLATELET VOLUME 11.6 fL (7.4-11.4); MONOCYTES # (AUTO) 0.9 10^3/uL (0.0-1.0); MONOCYTES % (AUTO) 10.7 %; NEUTROPHILS # (AUTO) 5.5 10^3/uL (1.5-6.6); NEUTROPHILS % (AUTO) 66.6 %; PLT - PLATELET COUNT 234 10^3/uL (130-450); RED BLOOD COUNT 4.18 10^6/uL (4.70-6.10); RED CELL DISTRIBUTION WIDTH 13.2 % (12.0-15.0); WHITE BLOOD COUNT 8.2 x10^3/uL (4.8-10.8)
[2022-10-11 12:09] LABS: ESTIMATED AVERAGE GLUCOSE 120 mg/dL (70-100); HEMOGLOBIN A1c% 5.8 % (4.27-6.07)
[2022-10-11 12:13] LABS: ALBUMIN 4.3 g/dL (3.2-5.5); ALBUMIN/GLOBULIN RATIO 1.4 (1.0-2.2); ALKALINE PHOSPHATASE 75 IU/L (42-121); ALT ALANINE AMINOTRANSFERASE 17 IU/L (10-60); AST ASPARTATE AMINOTRANSFERASE 22 IU/L (10-42); BILIRUBIN,TOTAL 0.9 mg/dL (0.2-1.0); BUN - BLOOD UREA NITROGEN 27 mg/dL (6-20); CALCIUM 9.5 mg/dL (8.5-10.3); CARBON DIOXIDE - CO2 28 mmol/L (21-32); CHLORIDE 95 mmol/L (101-111); CHOL/HDL RATIO 2.8 (<5.0); CHOLESTEROL 125 mg/dL; CREATININE 1.4 mg/dL (0.6-1.2); GFR - MDRD 49 (>89); GLUCOSE 104 mg/dL (70-100); HDL CHOLESTEROL 44 mg/dL; LDL CHOLESTEROL,CALCULATED 58 mg/dL; LDL/HDL RATIO 1.3 (<3.6); SODIUM 133 mmol/L (135-145); TOTAL PROTEIN 7.3 g/dL (6.7-8.2); TRIGLYCERIDES 113 mg/dL; VLDL CHOLESTEROL 23 mg/dL
[2022-10-11 12:29] LABS: THYROID STIMULATING HORMONE 4.1 uIU/mL (0.34-5.60)
[2022-10-11 13:31] LABS: CREATININE,URINE 150.5 mg/dL; MICROALBUM/CREATININE RATIO,UR 612.6 ug/mg (<30.0); MICROALBUMIN,URINE 92.2 mg/dL (0-300.0)
== END 2022-10-11 07:52 | disposition home or self-care (01) ==
LOC: LAB.N 07:51
PROVIDERS: ATTEND Internal Medicine
DX: I10 Essential (primary) hypertension (principal); I42.9 Cardiomyopathy, unspecified; E11.65 Type 2 diabetes mellitus with hyperglycemia; F32.A Depression, unspecified
CPT/HCPCS: 36415; 80053; 80061; 82043; 82570; 83036; 83721; 84443; 85025